=== PATIENT | female | born 1980 | race Caucasian/White ===

== ENCOUNTER 2017-05-07 05:10 | Inpatient (IN) | payer BC ==
[2017-05-07] MEDS ORDERED: Citric Acid/Sodium Citrate Solution 30 ML Cup PO ONE (05:16)
[2017-05-07] MEDS ORDERED: Sodium Chloride 0.9% 10 ML Syringe FLUSH PRN (05:16)
[2017-05-07] MEDS ORDERED: Metoclopramide 10 MG/2 ML SDV IVPUSH ONE (05:16)
[2017-05-07] MEDS ORDERED: ceFAZolin 2 GM in Premix Bag 1 BAG IV ONE (05:16)
[2017-05-07] MEDS ORDERED: Oxytocin/Lactated Ringers 10 UNIT/1,000 ML BAG IV SCH (05:30)
[2017-05-07] MEDS: Lactated Ringers 1,000 ML IV SCH ×2 (06:20→06:27)
[2017-05-07] MEDS ORDERED: Oxytocin 10 Units/1 ML SDV ONE (07:20)
[2017-05-07] MEDS ORDERED: ceFAZolin 1 GM Vial ONE (07:20)
[2017-05-07] MEDS ORDERED: Ondansetron 4 MG/2 ML SDV ONE (07:20)
--- NOTE | 2017-05-07 07:36 | PCM.PREANE ---
Preanesthetic Assessment - Procedure Proposed Procedure: Repeat C Section - Anesthesia/Transfusion/Family Hx Anesthesia History: Prior Anesthesia Without Reaction Family History of Anesthesia Reaction: No Transfusion History: No Prior Transfusion(s) Intubation History: Unknown Additional History: HX of ITP- platelets 2-14 was 175 - Review of Systems General: No Symptoms Pulmonary: No Symptoms Cardiovascular: No Symptoms Gastrointestinal: No Symptoms Neurological: No Symptoms Other: Reports: Thyroid Problems (hypothyroidism) - Physical Assessment NPO Status Date: 05/06/17 NPO Status Time: 21:30 O2 Sat by Pulse Oximetry: 99 Respiratory Rate: 16 Vital Signs: Last Vital Signs Temp 36.8 C 05/07/17 05:16 Pulse 92 05/07/17 05:16 Resp 16 05/07/17 05:16 BP 125/80 05/07/17 05:16 Pulse Ox 99 05/07/17 05:16 Height: 1.73 m Weight: 98.43 kg ASA Class: 2 Mental Status: Alert & Oriented x3 Airway Class: Mallampati = 1 Dentition: Reports: Normal Dentition Thyro-Mental Finger Breadths: 3 Mouth Opening Finger Breadths: 3 ROM/Head Extension: Full Lungs: Clear to Auscultation, Normal Respiratory Effort Cardiovascular: Regular Rate, Regular Rhythm - Lab Values: Laboratory Last Values WBC 12.35 K/mm3 (3.98-10.04) H 05/05/17 13:16 RBC 4.23 M/mm3 (3.98-5.22) 05/05/17 13:16 Hgb 12.3 gm/L (11.2-15.7) 05/05/17 13:16 Hct 36.0 % (34.1-44.9) 05/05/17 13:16 MCV 85.1 fl (79.4-94.8) 05/05/17 13:16 MCH 29.1 pg (25.6-32.2) 05/05/17 13:16 MCHC 34.2 g/dl (32.2-35.5) 05/05/17 13:16 RDW Std Deviation 43.2 fL (36.4-46.3) 05/05/17 13:16 Plt Count 175 K/mm3 (182-369) L 05/05/17 13:16 MPV 9.3 fl (9.4-12.3) L 05/05/17 13:16 Neut % (Auto) 68.8 % (34.0-71.1) 05/05/17 13:16 Lymph % (Auto) 21.5 % (19.3-51.7) 05/05/17 13:16 [place] % (Auto) 7.8 % (4.7-12.5) 05/05/17 13:16 Eos % (Auto) 1.1 (0.7-5.8) 05/05/17 13:16 Baso % (Auto) 0.2 % (0.1-1.2) 05/05/17 13:16 Neut # (Auto) 8.50 K/mm3 (1.56-6.13) H 05/05/17 13:16 Lymph # (Auto) 2.65 K/mm3 (1.18-3.74) 05/05/17 13:16 [place]lee # (Auto) 0.96 K/mm3 (0.24-0.36) H 05/05/17 13:16 Eos # (Auto) 0.14 K/mm3 (0.04-0.36) 05/05/17 13:16 Baso # (Auto) 0.03 K/mm3 (0.01-0.08) 05/05/17 13:16 Blood Type AB POSITIVE 05/05/17 13:16 Gel Antibody Screen Negative 05/05/17 13:16 - Allergies Allergies/Adverse Reactions: Allergies Allergy/AdvReac Type Severity Reaction Status Date / Time No Known Allergies Allergy Verified 02/07/17 11:59 - Blood Blood Available: No Product(s) Available: None - Anesthesia Plan Pre-Op Medication Ordered: None - Acknowledgements Anesthesia Type Planned: Spinal (with duramorph) Pt an Appropriate Candidate for the Planned Anesthesia: Yes Alternatives and Risks of Anesthesia Discussed w Pt/Guardian: Yes Pt/Guardian Understands and Agrees with Anesthesia Plan: Yes PreAnesthesia Questionnaire Gastrointestinal History: Reports: Other (See Below) Other Gastrointestinal History: gastric ulcer as a child Genitourinary History: Reports: UTI, Recurrent, Other (See Below) Other Genitourinary History: yeast infections with [employer] History: Reports: None Endocrine/Metabolic History: Reports: Hypothyroidism Hematologic History: Reports: Idiopathic Thrombocytopenia Other Hematologic History: in childhood - Infectious Disease History Infectious Disease History: Reports: Chicken Pox - Past Surgical History GI Surgical History: Reports: None Female Surgical History: Reports: None Endocrine Surgical History: Reports: None - SUBSTANCE USE Smoking Status *Q: Former Smoker Tobacco Use Within Last Twelve Months: Cigarettes Second Hand Smoke Exposure: No Days Per Week of Alcohol Use: 0 Recreational Drug Use History: No - HOME MEDS Home Medications: Home Meds Levothyroxine [Synthroid] 75 mcg PO DAILY 10/27/13 [History] PNV95/Ferrous Fumarate/FA [ Multivitamins] 1 tab PO DAILY 10/27/13 [ History] - CURRENT (IN HOUSE) MEDS Current Meds: Current Medications Lactated Ringer's (Ringers, Lactated) 1,000 mls @ 125 mls/hr IV ASDIRECTED [facility] Last Admin: 05/07/17 06:27 Dose: 125 mls/hr Oxytocin/Lactated Ringer's (Pitocin In Lr 10 Units/1,000 Ml) 10 unit in 1,000 mls @ 100 mls/hr IV ASDIRECTED [facility] Sodium Chloride (Saline Flush) 10 ml FLUSH ASDIRECTED PRN PRN Reason: Keep Vein Open Discontinued Medications Bupivacaine HCl (Marcaine 0.5%) Confirm Administered Dose 30 ml .ROUTE .STK-MED ONE Stop: 05/07/17 07:00 Cefazolin Sodium (Ancef) Confirm Administered Dose 2 gm .ROUTE .STK-MED ONE Stop: 05/07/17 07:21 Citric Acid/Sodium Citrate (Bicitra Solution) 30 ml PO ONETIME ONE Stop: 05/07/17 05:17 Last Admin: 05/07/17 06:23 Dose: 30 ml Cefazolin Sodium/Dextrose 2 gm (/ Premix) 50 mls @ 100 mls/hr IV ONETIME ONE Stop: 05/07/17 05:45 Metoclopramide HCl (Reglan) 10 mg IVPUSH ONETIME ONE Stop: 05/07/17 05:17 Last Admin: 05/07/17 06:21 Dose: 10 mg Ondansetron HCl (Zofran) Confirm Administered Dose 4 mg .ROUTE .STK-MED ONE Stop: 05/07/17 07:21 Oxytocin (Pitocin) Confirm Administered Dose 10 unit .ROUTE .STK-MED ONE Stop: 05/07/17 07:21
[2017-05-07] MEDS: Bupivacaine 0.5% 30 ML SDV ONE ×2 (08:08→09:05)
[2017-05-07] MEDS ORDERED: fentaNYL 100 MCG/2 ML SDV ONE (08:32)
[2017-05-07] MEDS ORDERED: Ketorolac 30 MG/ML SDV ONE (08:52)
--- NOTE | 2017-05-07 08:56 | PCM.POSTAN ---
POST ANESTHESIA ASSESSMENT - MENTAL STATUS Mental Status: Alert, Oriented - VITAL SIGNS Pulse Rate: 76 SaO2: 98 Resp Rate: 11 Blood Pressure: 119/86 Temperature: 36.7 C - RESPIRATORY Respiratory Status: Respiratory Rate WNL, Airway Patent, O2 Saturation Stable, Supplemental Oxygen - CARDIOVASCULAR CV Status: Pulse Rate WNL, Blood Pressure Stable - GASTROINTESTINAL GI Status: No Symptoms - PAIN Pain Score: 0 - POST OP HYDRATION Hydration Status: Adequate & Stable
[2017-05-07] MEDS ORDERED: diphenhydrAMINE 50 MG/ML SDV IVPUSH PRN (08:59)
[2017-05-07] MEDS ORDERED: fentaNYL 100 MCG/2 ML SDV IVPUSH PRN (08:59)
[2017-05-07] MEDS ORDERED: Meperidine PF 50 MG/ML Syringe IVPUSH PRN (08:59)
[2017-05-07] MEDS ORDERED: Ondansetron 4 MG/2 ML SDV IVPUSH PRN (08:59)
--- NOTE | 2017-05-07 09:02 | PCM.OPNOTE ---
- General Post-Op/Procedure Note Date of Surgery/Procedure: 05/07/17 Operative Procedure(s): repeat Findings: Viable female, weight 3360, Apgars 9/9, at 8:16 AM Pre Op Diagnosis: prior desires repeat Post-Op Diagnosis: Same Anesthesia Technique: Spinal Primary Surgeon: Ella Goodman Fluid Replacement, Intraop: 1,000 EBL in mLs: 800 Complications: None Condition: Good Free Text/Narrative:: The patient was taken to the operating room where epidural anesthesia was dosed to surgical levels without difficulty. The patient was prepped and draped in the usual sterile fashion in the dorsal supine position with a leftward tilt. A Pfannenstiel skin incision was through the prior incision with the scalpel and carried through to the underlying layer of fascia. The fascia was incised in the midline and extended laterally using Busby scissors. Clifford clamps were used to elevate the superior aspect of the fascial incision, which was elevated, and the underlying rectus muscles were dissected off bluntly and using Busby scissors. Attention was then turned to the inferior aspect of the fascial incision, which in similar fashion was grasped with Clifford clamps, elevated, and the underlying rectus muscles were dissected off bluntly and using the busby. The rectus muscles were dissected in the midline. The peritoneum was entered bluntly; this incision was extended superiorly and inferiorly with good visualization of the bladder. The bladder blade was inserted. The vesicouterine peritoneum was identified and entered sharply using Metzenbaum scissors. This incision was extended laterally and the bladder flap was created digitally. The bladder blade was reinserted. The lower uterine segment was incised in a transverse fashion using the scalpel and with digital traction. Clear fluid was noted. The infant was subsequently delivered by flexing the head to the incision. Vacuum utilized to facilitate delivery of the head. Body and shoulders followed without difficulty. The cord was clamped and cut. The infant was subsequently handed to the awaiting cheese specialist whose presence had been requested.. The placenta was delivered spontaneously intact with a three-vessel cord noted. The uterus was exteriorized and cleared of all clots and debris. The uterine incision was repaired in 2 layers using 0 monocryl. Hemostasis was visualized. Hemostasis was visualized bilaterally. The uterus was returned to the abdomen. Four additional figure of eight sutures utilized to render the right aspect of the incision hemostatic. The uterine incision was reexamined and it was noted to be hemostatic. The pelvis was copiously irrigated. The fascia was closed with 1 PDS suture, and the skin was closed with 3-0 monocryl. Sponge, lap, and instrument counts were correct x2. The patient was stable at the completion of the procedure and was subsequently transferred to the recovery room in stable condition.
[2017-05-07] MEDS ORDERED: Dextrose 5%-Lactated Ringers 1,000 ML IV SCH (11:45)
[2017-05-07] MEDS: Ketorolac 30 MG/ML SDV IVPUSH SCH ×2 (14:52→21:28)
[2017-05-08] MEDS: Ketorolac 30 MG/ML SDV IVPUSH SCH ×2 (04:00→13:52)
--- NOTE | 2017-05-08 08:15 | PCM.PNPP ---
- General Info Date of Service: 05/08/17 Functional Status: Reports: Pain Controlled - Review of Systems General: Reports: No Symptoms HEENT: Reports: No Symptoms Pulmonary: Reports: No Symptoms Cardiovascular: Reports: No Symptoms Gastrointestinal: Reports: No Symptoms Genitourinary: Reports: No Symptoms Musculoskeletal: Reports: No Symptoms Skin: Reports: No Symptoms Neurological: Reports: No Symptoms Psychiatric: Reports: No Symptoms - General Info Date of Service: 05/08/17 - Patient Data Vital Signs - Most Recent: Last Vital Signs Temp 36.1 C 05/08/17 04:10 Pulse 85 05/08/17 04:11 Resp 18 05/08/17 06:44 BP 129/72 05/08/17 04:10 Pulse Ox 100 05/08/17 06:44 Weight - Most Recent: 98.43 kg I&O - Last 24 Hours: Intake & Output 05/07/17 05/08/17 05/08/17 22:59 06:59 14:59 Intake Total 1120 Output Total 1900 Balance -780 Med Orders - Current: Current Medications Lactated Ringer's (Ringers, Lactated) 1,000 mls @ 125 mls/hr IV ASDIRECTED [facility] Last Admin: 05/07/17 06:27 Dose: 125 mls/hr Oxytocin/Lactated Ringer's (Pitocin In Lr 10 Units/1,000 Ml) 10 unit in 1,000 mls @ 100 mls/hr IV ASDIRECTED [facility] Dextrose/Lactated Ringer's (Dextrose 5%-Lactated Ringers) 1,000 mls @ 125 mls/ hr IV ASDIRECTED [facility] Last Admin: 05/07/17 11:30 Dose: 125 mls/hr Ketorolac Tromethamine (Toradol) 30 mg IVPUSH Q6H [facility] Last Admin: 05/08/17 04:00 Dose: 30 mg Sodium Chloride (Saline Flush) 10 ml FLUSH ASDIRECTED PRN PRN Reason: Keep Vein Open Discontinued Medications Bupivacaine HCl (Marcaine 0.5%) Confirm Administered Dose 30 ml .ROUTE .STK-MED ONE Stop: 05/07/17 07:00 Last Admin: 05/07/17 08:08 Dose: 20 ml Cefazolin Sodium (Ancef) Confirm Administered Dose 2 gm .ROUTE .STK-MED ONE Stop: 05/07/17 07:21 Citric Acid/Sodium Citrate (Bicitra Solution) 30 ml PO ONETIME ONE Stop: 05/07/17 05:17 Last Admin: 05/07/17 06:23 Dose: 30 ml Diphenhydramine HCl (Benadryl) 25 mg IVPUSH Q6H PRN PRN Reason: Pruritis Stop: 05/07/17 11:00 Fentanyl (Sublimaze) Confirm Administered Dose 100 mcg .ROUTE .STK-MED ONE Stop: 05/07/17 08:33 Fentanyl (Sublimaze) 50 mcg IVPUSH Q5M PRN PRN Reason: Pain Stop: 05/07/17 11:00 Cefazolin Sodium/Dextrose 2 gm (/ Premix) 50 mls @ 100 mls/hr IV ONETIME ONE Stop: 05/07/17 05:45 Last Admin: 05/07/17 13:35 Dose: Not Given Ketorolac Tromethamine (Toradol) Confirm Administered Dose 30 mg .ROUTE .STK- MED ONE Stop: 05/07/17 08:53 Meperidine HCl (Demerol) 12.5 mg IVPUSH ONETIME PRN PRN Reason: Shivering Stop: 05/07/17 11:00 Metoclopramide HCl (Reglan) 10 mg IVPUSH ONETIME ONE Stop: 05/07/17 05:17 Last Admin: 05/07/17 06:21 Dose: 10 mg Ondansetron HCl (Zofran) Confirm Administered Dose 4 mg .ROUTE .STK-MED ONE Stop: 05/07/17 07:21 Ondansetron HCl (Zofran) 4 mg IVPUSH ONETIME PRN PRN Reason: Nausea/Vomiting Stop: 05/07/17 11:00 Oxytocin (Pitocin) Confirm Administered Dose 10 unit .ROUTE .STK-MED ONE Stop: 05/07/17 07:21 - Infant Interaction Disposition, : [place] at Bedside - Recovery Exam Fundal Tone: Firm Fundal Level: 1 Fingerbreadths Below Umbilicus Fundal Placement: Midline Lochia Amount: Small Lochia Color: Rubra/Red Perineum Description: Intact, Minimal Bruising/Swelling Episiotomy/Laceration: None Bladder Status: Indwelling Catheter in Place - Exam General: Alert, Oriented HEENT: Pupils Equal Neck: Supple Lungs: Clear to Auscultation, Normal Respiratory Effort Cardiovascular: Regular Rate, Regular Rhythm GI/Abdominal Exam: Normal Bowel Sounds, Soft, Non-Tender, No Organomegaly, No Distention, No Abnormal Bruit, No Mass, Pelvis Stable Extremities: Normal Inspection, Normal Range of Motion, Non-Tender, No Pedal Edema, Normal Capillary Refill Skin: Warm, Dry, Intact Wound/Incisions: Healing Well Neurological: No New Focal Deficit Psy/Mental Status: Alert, Normal Affect, Normal Mood - Problem List Review Problem List Initiated/Reviewed/Updated: Yes - My Orders Last 24 Hours: My Active Orders 05/07/17 11:45 Dextrose 5%-Lactated Ringers 1,000 ml IV ASDIRECTED 05/07/17 15:00 Ketorolac [Toradol] 30 mg IVPUSH Q6H 05/07/17 Dinner Regular Diet [DIET] - Assessment Assessment:: POD1 Doing well - Plan Plan:: Routine care
[2017-05-08] MEDS ORDERED: Acetaminophen 325 MG Tab PO PRN (11:51)
[2017-05-08] MEDS: Acetaminophen/oxyCODONE 325-5 MG Tab PO PRN ×2 (12:32→20:11)
[2017-05-08] MEDS: Ibuprofen 600 MG Tab PO PRN (16:19)
[2017-05-08] MEDS: Docusate Sodium 100 MG Cap PO PRN (20:11)
[2017-05-09] MEDS: Acetaminophen/oxyCODONE 325-5 MG Tab PO PRN ×2 (02:16→08:30)
--- NOTE | 2017-05-09 07:49 | PCM.DCSUM1 ---
Discharge Summary - Discharge Data Discharge Date: 05/09/17 Discharge Disposition: Home, Self-Care 01 Condition: Good - Patient Summary/Data Operative Procedure(s) Performed: repeat - Patient Instructions Diet: Usual Diet as Tolerated Activity: No Strenuous Activities Driving: Do Not Drive Notify Provider of: Fever, Increased Pain, Swelling and Redness, Drainage, Nausea and/or Vomiting - Discharge Plan Home Medications: Home Meds Levothyroxine [Synthroid] 75 mcg PO DAILY 10/27/13 [History] PNV95/Ferrous Fumarate/FA [ Multivitamins] 1 tab PO DAILY 10/27/13 [ History] Acetaminophen/oxyCODONE [Percocet 325-5 MG] 2 tab PO Q4H PRN tablet 05/09/17 [ Rx] Ibuprofen [IJD: Ibuprofen] 600 mg PO Q6H PRN tablet 05/09/17 [Rx] - Discharge Summary/Plan Comment DC Time >30 min.: No - General Info Date of Service: 05/09/17 Functional Status: Reports: Pain Controlled - Review of Systems General: Reports: No Symptoms HEENT: Reports: No Symptoms Pulmonary: Reports: No Symptoms Cardiovascular: Reports: No Symptoms Gastrointestinal: Reports: No Symptoms Genitourinary: Reports: No Symptoms Musculoskeletal: Reports: No Symptoms Skin: Reports: No Symptoms Neurological: Reports: No Symptoms Psychiatric: Reports: No Symptoms - Patient Data Vitals - Most Recent: Last Vital Signs Temp 36.0 C 05/09/17 02:20 Pulse 73 05/09/17 02:20 Resp 18 05/09/17 02:20 BP 132/77 05/09/17 02:20 Pulse Ox 98 05/09/17 02:20 Weight - Most Recent: 98.43 kg Med Orders - Current: Current Medications Acetaminophen (Tylenol) 650 mg PO Q4H PRN PRN Reason: mild pain or fever Docusate Sodium (Colace) 100 mg PO Q12H PRN PRN Reason: Constipation Last Admin: 05/08/17 20:11 Dose: 100 mg Ibuprofen (Motrin) 600 mg PO Q6H PRN PRN Reason: mild pain or fever Last Admin: 05/08/17 16:19 Dose: 600 mg Oxycodone/Acetaminophen (Percocet 325-5 Mg) 2 tab PO Q4H PRN PRN Reason: Pain (moderate 4-6) Last Admin: 05/09/17 02:16 Dose: 1 tab Sodium Chloride (Saline Flush) 10 ml FLUSH ASDIRECTED PRN PRN Reason: Keep Vein Open Discontinued Medications Bupivacaine HCl (Marcaine 0.5%) Confirm Administered Dose 30 ml .ROUTE .STK-MED ONE Stop: 05/07/17 07:00 Last Admin: 05/07/17 08:08 Dose: 20 ml Cefazolin Sodium (Ancef) Confirm Administered Dose 2 gm .ROUTE .STK-MED ONE Stop: 05/07/17 07:21 Citric Acid/Sodium Citrate (Bicitra Solution) 30 ml PO ONETIME ONE Stop: 05/07/17 05:17 Last Admin: 05/07/17 06:23 Dose: 30 ml Diphenhydramine HCl (Benadryl) 25 mg IVPUSH Q6H PRN PRN Reason: Pruritis Stop: 05/07/17 11:00 Fentanyl (Sublimaze) Confirm Administered Dose 100 mcg .ROUTE .K-MED ONE Stop: 05/07/17 08:33 Fentanyl (Sublimaze) 50 mcg IVPUSH Q5M PRN PRN Reason: Pain Stop: 05/07/17 11:00 Cefazolin Sodium/Dextrose 2 gm (/ Premix) 50 mls @ 100 mls/hr IV ONETIME ONE Stop: 05/07/17 05:45 Last Admin: 05/07/17 13:35 Dose: Not Given Lactated Ringer's (Ringers, Lactated) 1,000 mls @ 125 mls/hr IV ASDIRECTED [facility] Last Admin: 05/07/17 06:27 Dose: 125 mls/hr Oxytocin/Lactated Ringer's (Pitocin In Lr 10 Units/1,000 Ml) 10 unit in 1,000 mls @ 100 mls/hr IV ASDIRECTED [facility] Dextrose/Lactated Ringer's (Dextrose 5%-Lactated Ringers) 1,000 mls @ 125 mls/ hr IV ASDIRECTED [facility] Last Admin: 05/07/17 11:30 Dose: 125 mls/hr Ketorolac Tromethamine (Toradol) Confirm Administered Dose 30 mg .ROUTE .STK- MED ONE Stop: 05/07/17 08:53 Ketorolac Tromethamine (Toradol) 30 mg IVPUSH Q6H [facility] Last Admin: 02/17/18 13:52 Dose: Not Given Meperidine HCl (Demerol) 12.5 mg IVPUSH ONETIME PRN PRN Reason: Shivering Stop: 05/07/17 11:00 Metoclopramide HCl (Reglan) 10 mg IVPUSH ONETIME ONE Stop: 05/07/17 05:17 Last Admin: 05/07/17 06:21 Dose: 10 mg Ondansetron HCl (Zofran) Confirm Administered Dose 4 mg .ROUTE .STK-MED ONE Stop: 05/07/17 07:21 Ondansetron HCl (Zofran) 4 mg IVPUSH ONETIME PRN PRN Reason: Nausea/Vomiting Stop: 05/07/17 11:00 Oxytocin (Pitocin) Confirm Administered Dose 10 unit .ROUTE .STK-MED ONE Stop: 05/07/17 07:21 - Exam General: Reports: Alert, Oriented HEENT: Reports: Pupils Equal, Pupils Reactive, EOMI, Mucous Membr. Moist/Nibbe Neck: Reports: Supple Lungs: Reports: Clear to Auscultation, Normal Respiratory Effort Cardiovascular: Reports: Regular Rate, Regular Rhythm GI/Abdominal Exam: Normal Bowel Sounds, Soft, Non-Tender, No Organomegaly, No Distention, No Abnormal Bruit, No Mass, Pelvis Stable Back Exam: Reports: Normal Inspection, Full Range of Motion Extremities: Normal Inspection, Normal Range of Motion, Non-Tender, No Pedal Edema, Normal Capillary Refill Skin: Reports: Warm, Dry, Intact Wound/Incisions: Reports: Healing Well Neurological: Reports: No New Focal Deficit Psy/Mental Status: Reports: Alert, Normal Affect, Normal Mood *Q Meaningful Use (DIS) - VTE *Q VTE Criteria *Q: - Stroke *Q Stroke Criteria *Q: - AMI *Q AMI Criteria *Q:
[2017-05-09] MEDS: Ibuprofen 600 MG Tab PO PRN (11:22)
[2017-05-09] MEDS: Docusate Sodium 100 MG Cap PO PRN (11:23)
== END 2017-05-09 11:30 | disposition home or self-care (01) | DRG 540 ==
LOC: JD.OB 05:10
PROVIDERS: ADMIT Obstetrics & Gynecology; ATTEND Obstetrics & Gynecology
PROC: 10D00Z1 Extraction of Products of Conception, Low, Open Approach (ICD-10-PCS; principal; 2017-05-07)
DX: O34.211 Maternal care for low transverse scar from previous cesarean delivery (principal); N85.8 Other specified noninflammatory disorders of uterus; O99.284 Endocrine, nutritional and metabolic diseases complicating childbirth; E03.9 Hypothyroidism, unspecified; Z3A.39 39 weeks gestation of pregnancy; Z37.0 Single live birth; Z87.891 Personal history of nicotine dependence
CPT/HCPCS: 36415; 85025; 86850; 86900; 86901; 94762; A9270-GY; J0690; J1885; J2405; J2590; J2765; J3010; J7042; J7120

== ENCOUNTER 2017-08-22 18:56 | Emergency (ER) | payer BC ==
[2017-08-22] MEDS ORDERED: HYDROmorphone 0.5 MG/0.5 ML SYRINGE IVPUSH ONE ×2 (19:22→20:15)
[2017-08-22] MEDS ORDERED: Sodium Chloride 0.9% 10 ML Syringe FLUSH PRN (19:22)
[2017-08-22] MEDS ORDERED: Ondansetron 4 MG/2 ML SDV IVPUSH ONE (19:22)
--- NOTE | 2017-08-22 19:55 | EDM.PDOC ---
ED HPI GENERAL MEDICAL PROBLEM - General Chief Complaint: Back Pain or Injury Stated Complaint: BACK PAIN Time Seen by Provider: 08/22/17 19:05 Source of Information: Reports: Patient, RN Notes Reviewed - History of Present Illness INITIAL COMMENTS - FREE TEXT/NARRATIVE: 37 year old female with acute onset L low pelvic pain yesterday, gradually improved, felt fine earlier today and than sudden onset of L flank and back pain about 2 hrs ago, sharp, shooting with mild nausea, no vomiting. No voiding sx. No abd or pelvic pain today. no chest or shoulder pain. Left Lower Back Pain Score (Numeric/FACES): 5 - Related Data Allergies Allergy/AdvReac Type Severity Reaction Status Date / Time No Known Allergies Allergy Verified 08/22/17 19:07 Home Meds: Home Meds Levothyroxine [Synthroid] 75 mcg PO DAILY 10/27/13 [History] Control. 1 tab PO DAILY 08/22/17 [History] Past Medical History Gastrointestinal History: Reports: Other (See Below) Other Gastrointestinal History: gastric ulcer as a child Genitourinary History: Reports: UTI, Recurrent, Other (See Below) Other Genitourinary History: yeast infections with [employer] History: Reports: None Endocrine/Metabolic History: Reports: Hypothyroidism Hematologic History: Reports: Idiopathic Thrombocytopenia Other Hematologic History: in childhood - Infectious Disease History Infectious Disease History: Reports: Chicken Pox - Past Surgical History GI Surgical History: Reports: None Female Surgical History: Reports: None, Section Endocrine Surgical History: Reports: None Social & Family History - Family History Oncologic: Reports: Non-Hodgkin's Lymphoma - Tobacco Use Smoking Status *Q: Never Smoker - Caffeine Use Caffeine Use: Reports: Coffee, Soda Caffeine Use Comment: once weekly - Recreational Drug Use Recreational Drug Use: No ED ROS GENERAL - Review of Systems Review Of Systems: See Below Constitutional: Denies: Fever, Chills, Diaphoresis HEENT: Reports: No Symptoms Respiratory: Denies: Shortness of Breath, Pleuritic Chest Pain Cardiovascular: Denies: Chest Pain GI/Abdominal: Reports: Abdominal Pain (L lower abd and pelvic pain yesterday AM , gone), Nausea. Denies: Diarrhea, Vomiting : Reports: No Symptoms Musculoskeletal: Reports: Back Pain. Denies: Joint Pain Skin: Reports: No Symptoms Neurological: Reports: No Symptoms ED EXAM,LOWER BACK PAIN/INJURY - Physical Exam Exam: See Below General Appearance: Alert, Moderate Distress Eye Exam: Bilateral Eye: PERRL Throat/Mouth: Normal Inspection, Normal Oropharynx Head: Atraumatic Neck: Supple Respiratory/Chest: No Respiratory Distress, Lungs Clear, Normal Breath Sounds Cardiovascular: Regular Rate, Rhythm GI/Abdominal: Soft, Non-Tender. No: Guarding Back Exam: CVA Tenderness (L) (mild) Extremities: Normal Inspection, Normal Range of Motion Neurological: Alert, No Motor/Sensory Deficits Skin Exam: Warm, Dry, Normal Color Course - Vital Signs Last Recorded V/S: Last Vital Signs Temp 99.2 F 08/22/17 19:03 Pulse 92 08/22/17 19:03 Resp 18 08/22/17 19:03 BP 158/106 H 08/22/17 19:03 Pulse Ox 100 08/22/17 19:03 - Orders/Labs/Meds Orders: Active Orders 24 hr Category Date Time Status Peripheral IV Care [RC] . DIRECTED Care 08/22/17 19:22 Active Abdomen Pelvis wo Cont [CT] Stat Exams 08/22/17 20:15 Taken Sodium Chloride 0.9% [Saline Flush] Med 08/22/17 19:22 Active 10 ml FLUSH ASDIRECTED PRN Peripheral IV Insertion Adult [OM.PC] Stat Oth 08/22/17 19:22 Ordered Medication Orders Sodium Chloride (Saline Flush) 10 ml FLUSH ASDIRECTED PRN PRN Reason: Keep Vein Open Last Admin: 08/22/17 19:39 Dose: 10 ml Labs: Laboratory Tests 08/22/17 08/22/17 Range/Units 19:25 19:42 HCG, Qual Negative (NEGATIVE) Urine Color Yellow (Yellow) Urine Appearance Clear (Clear) Urine pH 5.5 (5.0-8.0) Ur Specific [place] > or = 1.030 (1.005-1.030) Urine Protein 1+ H (Negative) Urine Glucose (UA) Negative (Negative) Urine Ketones Negative (Negative) Urine Occult Blood Trace-intact H (Negative) Urine Nitrite Negative (Negative) Urine Bilirubin Negative (Negative) Urine Urobilinogen 0.2 (0.2-1.0) Ur Leukocyte Esterase Trace H (Negative) Urine RBC 5-10 H (0-5) /hpf Urine WBC 5-10 H (0-5) /hpf Ur Epithelial Cells 5-10 H (0-5) /hpf Urine Bacteria Few (FEW) /hpf Urine Mucus Many H (FEW) /hpf Meds: Medications Generic Name Dose Route Start Last Admin Trade Name Frepamela PRN Reason Stop Dose Admin Sodium Chloride 10 ml 08/22/17 19:22 08/22/17 19:39 Saline Flush FLUSH 10 ml ASDIRECTED PRN Administration Keep Vein Open Discontinued Medications Generic Name Dose Route Start Last Admin Trade Name Frepamela PRN Reason Stop Dose Admin Hydromorphone HCl 0.5 mg 08/22/17 19:22 08/22/17 19:39 Dilaudid IVPUSH 08/22/17 19:23 0.5 mg ONETIME ONE Administration Hydromorphone HCl 0.5 mg 08/22/17 20:15 08/22/17 20:24 Dilaudid IVPUSH 08/22/17 20:16 0.5 mg ONETIME ONE Administration Ondansetron HCl 4 mg 08/22/17 19:22 08/22/17 19:38 Zofran IVPUSH 08/22/17 19:23 4 mg ONETIME ONE Administration - Re-Assessments/Exams Free Text/Narrative Re-Assessment/Exam: 08/22/17 21:27 CT Of abdomen and pelvis looking for possible kidney stone did show a 3 mm stone distal left ureter with hydronephrosis, see radiology report for details. She does feel now much better after her second dose of 0.5 mg Dilaudid IV. Discharge instructions as documented. Departure - Departure Time of Disposition: 21:21 Disposition: Home, Self-Care 01 Condition: Fair Clinical Impression: Ureter colic, Kidney stone - Discharge Information Referrals: Ella Goodman MD [Primary Care Provider] - Forms: ED Department Discharge Additional Instructions: CT showed a 3 mm kidney stone L distal ureter sitting just above the bladder. Strain urine to watch for stone. Tylenol for mild to moderate discomfort or hydrocodone if needed for more severe pain, do not take Tylenol and hydrocodone same time, do not drive or work when taking hydrocodone. Follow up clinic if you do not see or feel that you have pass the stone within 1-2 days. Return to ED as needed if symptoms worsening in any way. - My Orders Last 24 Hours: My Active Orders 08/22/17 19:22 Peripheral IV Care [RC] . DIRECTED Sodium Chloride 0.9% [Saline Flush] 10 ml FLUSH ASDIRECTED PRN Peripheral IV Insertion Adult [OM.PC] Stat 08/22/17 20:15 Abdomen Pelvis wo Cont [CT] Stat - Assessment/Plan Last 24 Hours: My Active Orders 08/22/17 19:22 Peripheral IV Care [RC] . DIRECTED Sodium Chloride 0.9% [Saline Flush] 10 ml FLUSH ASDIRECTED PRN Peripheral IV Insertion Adult [OM.PC] Stat 08/22/17 20:15 Abdomen Pelvis wo Cont [CT] Stat
--- NOTE | 2017-08-23 08:54 | CT ---
CT abdomen and pelvis Technique: Multiple axial sections were obtained from above the dome of the diaphragm inferiorly through the pubic symphysis. Intravenous and oral contrast not utilized. Study has been performed as a ureteral stone protocol. Comparison: No prior abdominal imaging. Findings: Left collecting system is dilated. Left ureter is dilated. These findings are caused by a 5 mm obstructing stone within the distal left ureter. No other abnormal calcifications are seen along the course of the ureters. No abnormal calcifications are seen within the kidneys. Visualized lung bases show nothing acute. Liver has a normal noncontrast CT appearance. Spleen appears within normal limits. Adrenal glands show no nodule. Pancreas is within normal limits. Gallbladder contains no calcified gallstones. Aorta shows no aneurysmal dilatation. No retroperitoneal adenopathy or mesenteric abnormalities are seen. No pelvic mass or adenopathy is seen. Small amount of free fluid is seen within the cul-de-sac believed to be incidental. Appendix is not definitely visualized. Bone window settings were reviewed which appear within normal limits for the patient's age. Impression: 1. 5 mm obstructing stone within the distal left ureter causing proximal hydronephrosis. 2. Other incidental findings. Diagnostic code #3 I agree with preliminary report from [facility], finalized at 08/22/17, 9:58 PM Central Time
== END 2017-08-22 21:35 | disposition home or self-care (01) ==
LOC: JD.ED 18:56
DX: N13.2 Hydronephrosis with renal and ureteral calculous obstruction (principal); E03.9 Hypothyroidism, unspecified; Z79.899 Other long term (current) drug therapy
CPT/HCPCS: 36415; 74176; 81001; 84703; 96374; 96375; 96376; 99284; J1170; J2405; J7050

== ENCOUNTER 2023-03-03 19:22 | Emergency (ER) | payer BC ==
[2023-03-03] MEDS ORDERED: LORazepam 2 MG/ML SDV IVPUSH ONE (19:37)
[2023-03-03] MEDS ORDERED: Sodium Chloride 0.9% 10 ML Syringe FLUSH PRN (19:38)
[2023-03-03 19:51] LABS: BASOPHILS ABSOLUTE AUTO 0.1 K/mm3 (0.0-0.2); BASOPHILS PERCENT AUTO 0.8 % (0.0-1.0); EOSINOPHILS ABSOLUTE AUTO 0.1 K/mm3 (0.0-0.4); EOSINOPHILS PERCENT AUTO 0.7 % (0.0-6.0); HEMATOCRIT 38.8 % (37.0-47.0); HEMOGLOBIN 13.5 gm/dl (12.0-16.0); IMMATURE GRAN ABSOLUTE AUTO 0.02 K/mm3 (0.00-0.05); IMMATURE GRAN PERCENT AUTO 0.2 % (0.0-0.4); LYMPHOCYTES ABSOLUTE AUTO 3.8 K/mm3 (1.0-4.8); LYMPHOCYTES PERCENT AUTO 41.8 % (24.0-44.0); MEAN CORPUSCULAR HEMOGLOBIN 27.5 pg (28.0-32.0); MEAN CORPUSCULAR HGB CONC 34.8 g/dl (32.0-36.0); MONOCYTES ABSOLUTE AUTO 0.6 K/mm3 (0.0-0.8); MONOCYTES PERCENT AUTO 6.4 % (0.0-8.0); NEUTROPHILS ABSOLUTE AUTO 4.6 K/mm3 (1.8-7.7); NEUTROPHILS PERCENT AUTO 50.1 % (41.0-71.0); PLATELET COUNT,PLT 247 K/mm3 (150-400); RED BLOOD CELL COUNT 4.91 M/mm3 (4.10-5.30); WHITE BLOOD CELL COUNT,WBC 9.16 K/mm3 (3.9-11.3)
[2023-03-03 20:10] LABS: APPEARANCE,URINE CLEAR (Clear); BILIRUBIN,URINE NEGATIVE (Negative); COLOR,URINE YELLOW (Yellow); GLUCOSE,URINE NEGATIVE (Negative); KETONES,URINE NEGATIVE (Negative); LEUKOCYTE ESTERASE,URINE NEGATIVE (Negative); NITRITE,URINE NEGATIVE (Negative); OCCULT BLOOD,URINE NEGATIVE (Negative); PROTEIN,URINE NEGATIVE (Negative); UROBILINOGEN,URINE 0.2 (0.2-1.0)
[2023-03-03 20:18] LABS: A/G RATIO 1.1 (1-2); ALBUMIN 4.2 g/dl (3.4-5.0); ANION GAP 15.9 (5-15); BILIRUBIN TOTAL 1.1 mg/dL (0.2-1.0); BUN/CREATININE RATIO 6.7 (14-18); CALCIUM 9.6 mg/dL (8.5-10.1); CREATININE 0.9 mg/dL (0.55-1.02); EST CRCL DRUG DOSING (CG) 82.98 mL/min; MAGNESIUM 1.7 mg/dL (1.8-2.4); POTASSIUM,K 2.9 mEq/L (3.5-5.1); PROTEIN TOTAL,TP 8.1 g/dl (6.4-8.2)
[2023-03-03 20:27] LABS: BACTERIA,URINE FEW /hpf (FEW); MUCUS,URINE MODERATE /hpf (FEW); RBC,URINE 0-5 /hpf (0-5); WBC,URINE 0-5 /hpf (0-5)
[2023-03-03] MEDS ORDERED: Potassium Chloride 20 MEQ Tab.ER PO ONE (20:42)
[2023-03-03] MEDS ORDERED: ClonazePAM 0.5 MG Tab PO ONE (21:25)
== END 2023-03-03 21:38 | disposition home or self-care (01) ==
LOC: JD.ED 19:22
DX: E87.6 Hypokalemia (principal); R07.89 Other chest pain; F41.9 Anxiety disorder, unspecified
CPT/HCPCS: 36415; 71046; 80053; 81001; 81025; 83735; 84484; 85025; 93005; 96374; 99285; A9270; J2060; 93010; 99284